=== PATIENT | male | born 2000 | race Hispanic/Latino ===

== ENCOUNTER 2024-08-20 22:50 | Emergency (ER) | payer SELFPAY ==
[2024-08-21] MEDS ORDERED: Lidocaine/Transparent Dressing 1 EACH KIT ONE (00:18)
[2024-08-21] MEDS ORDERED: Amoxicillin/Potassium Clav 875 MG TAB ONE (00:19)
[2024-08-21] MEDS ORDERED: Boostrix 0.5 ML (Tdap) VIAL (>/=7 yrs of age) ONE (00:31)
[2024-08-21] MEDS ORDERED: Bacitracin 1 PK ONE (01:38)
== END 2024-08-21 01:50 | disposition home or self-care (01) ==
LOC: CSHERS 22:50
DX: S01.351A Open bite of right ear, initial encounter (principal); S01.311A Laceration without foreign body of right ear, initial encounter; Z23 Encounter for immunization; W54.0XXA Bitten by dog, initial encounter
CPT/HCPCS: 12011; 90471; 90715